=== PATIENT | male | born 1980 | race Caucasian/White ===

== ENCOUNTER → 2017-02-27 | Outpatient (CLI) | payer OTHER ==
[~2017-02-27] MED LIST: DEPAKOTE ER PO; HYDROCODON-ACE1 EAC5 PO; KEPPRA1000 MG PO; KEPPRA750 MG PO; KETOPROFEN PO; METFORMIN PO; SKELAXIN PO; TENEX1 MG PO; VOLTAREN75 MG PO
--- NOTE | ~2017-02-27 | CR172 ---
[facility]. [facility] A Service of [facility] & [facility] RADIOLOGY TEXT RESULTS PATIENT: WHIT HIRSCH LOCATION: [facility] : [birth year] UNIT #: [id number] AGE: [address]: Yamile Jauregui APRN SEX: M ORDER DR: [id number] [address] [address] [id number] O MR#: [id number] Acc #: [id number] NAME: WHIT HIRSCH : 1980 SEX: M STUDY DATE/TIME: 02/27/2017 16:54 UNIT: SRAD ROOM: STUDY DESCRIPTION: CR Knee 3 Views Lt Attending Physician: Yamile Jauregui A.P.R.N. Referring Physician: Yamile Jauregui A.P.R.N. Ordering Physician: Yamile Jauregui A.P.R.N. Primary Care Physician: Charanjit Parra M.D. MEDICAL IMAGING REPORT This report is preliminary unless electronic signature is present. EXAM Left knee, 02/27/2017 HISTORY 36-year-old male with left knee pain for 7 months. No specific injury. COMPARISON None. FINDINGS Three views of the left knee demonstrate no acute fracture or dislocation. Suspected small joint effusion, nonspecific. Joint spaces appear adequately maintained. Soft tissues are unremarkable. IMPRESSION 1. No acute fracture or dislocation. 2. Questionable small joint effusion. If clinical symptoms persist, consider further characterization with left knee MRI. Dictated by... Damian Celaya M.D. THIS IS AN ELECTRONICALLY VERIFIED REPORT Damian Celaya M.D. at 02/28/2017 8:33 AM YVES/samir TD: 02/28/2017 00:45 JOB #: [id number] MEDICAL IMAGING REPORT Page 1 of 1
== END | disposition home or self-care (01) ==
LOC: SRAD 16:49
DX: M25.562 Pain in left knee (principal)
CPT/HCPCS: 73562

== ENCOUNTER 2017-04-30 08:02 | Emergency (ER) | payer OTHER ==
--- NOTE | ~2017-04-30 | CR20 ---
[facility] A Service of [facility] & [facility] RADIOLOGY TEXT RESULTS PATIENT: WHIT HIRSCH LOCATION: SED : 78 UNIT #: [id number] AGE: [address]: Harvey Moran MD SEX: M ORDER DR: [id number] [place] [id number] E MR#: [id number] Acc #: [id number] NAME: WHIT HIRSCH : 1980 SEX: M STUDY DATE/TIME: 04/30/2017 08:51 UNIT: SED ROOM: STUDY DESCRIPTION: CR Ankle Min 3 Views Lt Attending Physician: Harvey Moran M.D. Ordering Physician: Harvey Moran M.D. Primary Care Physician: Charanjit Parra M.D. MEDICAL IMAGING REPORT This report is preliminary unless electronic signature is present. EXAM Left ankle 3 views, 04/30/2017 08:51 hours HISTORY 37-year-old man who rolled his ankle while walking yesterday. Ankle pain. COMPARISON None FINDINGS AP, lateral and oblique views demonstrate anterolateral soft tissue swelling with no fracture or dislocation. Ankle mortise is symmetric and normal. IMPRESSION Lateral soft tissue swelling with no fracture or dislocation. Dictated by... Berta Grant M.D. THIS IS AN ELECTRONICALLY VERIFIED REPORT eBrta Grant M.D. at 04/30/2017 2:31 PM Speedy TD: 04/30/2017 10:36 JOB #: [id number] MEDICAL IMAGING REPORT Page 1 of 1
[~2017-04-30 08:02] MED LIST changes: -HYDROCODON-ACE1 EAC5 PO; -METFORMIN PO; -TENEX1 MG PO
[2017-04-30] MEDS ORDERED: METFORMIN PO (08:15)
[2017-04-30] MEDS ORDERED: TENEX1 MG PO (08:16)
[2017-04-30] MEDS ORDERED: HYDROCODON-ACE1 EAC5 PO (08:16)
== END 2017-04-30 10:05 | disposition home or self-care (01) ==
LOC: SED 08:02
DX: S93.492A Sprain of other ligament of left ankle, initial encounter (principal); X50.1XXA Overexertion from prolonged static or awkward postures, initial encounter; Y92.69 Other specified industrial and construction area as the place of occurrence of the external cause; Y99.0 Civilian activity done for income or pay
CPT/HCPCS: 29540; 73610; 99283